=== PATIENT | male | born 1975 | race Caucasian/White ===

== ENCOUNTER 2019-05-24 11:54 | Observation (INO) | payer OTHER ==
[~2019-05-24] VITALS: Ht 185.4 cm; Wt 116.4 kg
[2019-05-25 07:19] VITALS: BP 115/63
== END 2019-05-25 12:03 | disposition home or self-care (01) ==
LOC: OUT 11:54 → 4NOR 21:10 → OUT 21:36 → 4NOR 21:36 → DCLOUNGE 05-25 11:55
PROVIDERS: ADMIT Urology; ATTEND Urology
DX: N35.919 Unspecified urethral stricture, male, unspecified site (principal)
CPT/HCPCS: 36415; 53415; 80048; 81003; 85025; 87086; 88305; C1726; C1769; G0378; J0690; J1100; J2250; J2405; J2704; J2710; J3010; J7120